=== PATIENT | female | born 1965 | race Caucasian/White ===

== ENCOUNTER 2019-09-22 15:25 | Inpatient (IN) | payer OTHER ==
[~2019-09-22] VITALS: Ht 165.1 cm; Wt 69.4 kg
--- NOTE | 2019-09-22 15:39 | NUR ---
BIBS FROM HOME TO ER BED 7. AAOX4. NOT IN RESP DISTRESS. AMBUALTORY. CAME IN FOR GEN ABDOMINAL PAIN X 3 DAYS. PER PT, PAIN STARTED AFTER EATING SOMETHING BAD ON SATURDAY. PT REPORTS UNABLE TO KEEP FOOD DOWN SINCE YESTERDAY. PT ALSO [id number], TAHT SHE HAD A FEVER OF 101.8 EARLIER AT NOON, NOTED ORAL TEMP AT 99.6. MD IS AT BEDSIDE FOR EVAL. AWAITING FOR FURTHER ORDERS
[2019-09-22] MEDS ORDERED: ONDANSETRON HCL/PF 4 MG/2 ML VIAL ONE (15:47)
[2019-09-22] MEDS ORDERED: MORPHINE SULFATE INJ 2 MG/ML DISP.SYRIN ONE (15:48)
[2019-09-22] MEDS ORDERED: MORPHINE SULFATE INJ 2 MG/ML DISP.SYRIN IV ONE (16:00)
[2019-09-22] MEDS ORDERED: IV NS 0.9% 1,000 ML BAG IV ONE (16:00)
[2019-09-22] MEDS ORDERED: ONDANSETRON HCL/PF 4 MG/2 ML VIAL IVP ONE (16:00)
[2019-09-22 16:03] LABS: BASOPHILS % (AUTO) 0.3 % (0.0-2.0); EOSINOPHILS % (AUTO) 0.4 % (0.0-6.0); HEMATOCRIT 44 % (33-45); HEMOGLOBIN 14.6 g/dL (11.5-14.8); LYMPHOCYTES # (AUTO) 0.9 /CMM (0.8-4.8); LYMPHOCYTES % (AUTO) 8.2 % (20.0-44.0); MEAN CORPUSCULAR HGB CONC 33 g/dl (31.0-36.0); MEAN CORPUSCULAR VOLUME 95 fL (82-100); MONOCYTES % (AUTO) 9.1 % (2.0-12.0); NEUTROPHILS # (AUTO) 9.4 /CMM (1.8-8.9); PLATELET COUNT (AUTO) 207 /CMM (150-450); RED BLOOD CELL COUNT(AUTO) 4.63 MIL/uL (4.0-5.2); WHITE BLOOD COUNT (AUTO) 11.4 K/uL (4.3-11.0)
[2019-09-22 16:15] LABS: BILIRUBIN,URINE SMALL (NEGATIVE); BLOOD, URINE Moderate Ery/uL (NEGATIVE); COLOR,URINE Yellow (YELLOW); KETONES,URINE >=160 (NEGATIVE); LEUKOCYTE ESTERASE ,URINE Negative (NEGATIVE); NITRITE, URINE Negative (NEGATIVE); PH,URINE 5.5 (5.0-8.0); PROTEIN,URINE Negative (NEGATIVE); UGLUCOSE Negative (NEGATIVE); UROBILINOGEN,URINE 0.2 EU/dL (0.2)
[2019-09-22 16:18] LABS: CALCIUM, SERUM 9.2 mg/dL (8.5-10.1); POTASSIUM 3.8 mmol/L (3.5-5.1)
[2019-09-22 16:24] LABS: ALBUMIN 4.1 g/dL (3.4-5.0); BILIRUBIN,DIRECT 0.2 mg/dL (0.0-0.2); TOTAL PROTEIN, SERUM 7.9 g/dL (6.4-8.2)
[2019-09-22 16:37] LABS: APPEARANCE,URINE SLIGHTLY HAZY (CLEAR)
[2019-09-22 16:38] LABS: BACTERIA,URINE Few /HPF (None Seen); SQUAMOUS EPITHELIAL CELL,UR Moderate /HPF (None Seen); WBC,URINE 0-2 /HPF (0-3)
[2019-09-22] MEDS ORDERED: HYDROMORPHONE 1 MG/1 ML DISP.SYRIN ONE (17:17)
[2019-09-22] MEDS ORDERED: FLAGYL/NS RTU 500 MG/100 ML PIGGYBACK IV ONE (17:30)
[2019-09-22] MEDS ORDERED: LEVOFLOXACIN 750 MG /D5W 150ML PIGGYBACK IV ONE (17:30)
[2019-09-22] MEDS ORDERED: HYDROMORPHONE 1 MG/1 ML DISP.SYRIN IV ONE (17:30)
[2019-09-22] MEDS ORDERED: METRONIDAZOLE 500MG/ NS 100ML 100 ML IV ONE (17:31)
[2019-09-22] MEDS ORDERED: LEVOFLOXACIN 750 MG /D5W 150ML 150 ML IV ONE (17:31)
--- NOTE | 2019-09-22 19:35 | NUR ---
CALLED [facility], PAGED VERONICA FOR ADMISSION
--- NOTE | 2019-09-22 19:44 | NUR ---
REPORT GIVEN TO CASE SUAREZ FOR KRZYSZTOF.
[2019-09-22 19:50] VITALS: BP 129/80
--- NOTE | 2019-09-22 19:55 | NUR ---
MS STRETCHER OPERATOR NOTES PATIENT TRANSFERRED FROM ER IN STABLE CONDITION. A/OX4 ABLE TO VERBALIZE NEEDS. AMBULATORY WITH STEADY GAIT. ON RA. NO S/S OF ACUTE RESPIRATORY DISTRESS. C/O ABDOMINAL PAIN RATED 5/10. DENIES NAUSEA AT THIS TIME. IV PRESENT ON LEFT HAND, SIZE 20, INTACT & PATENT, HEP LOCKED. SKIN DRY AND INTACT. BELONGINGS REVIEWED WITH PATIENT, LIST SIGNED AND PLACED IN CHART. MED RECON COMPLETED. MRSA SWAB COMPLETED IN ER. ADMISSION ORDERS IN PLACE. WILL CONTINUE TO MONITOR.
--- NOTE | 2019-09-22 19:55 | NUR ---
PT TRANSPORTED TO UNIT OPN KEE W/ EMT AND RN AT BEDSIDE. PT IS IN STABLE CONDITION. PT AMBULATED FROM [facility] TO BED ON STEADY GAIT
[2019-09-22 20:00] VITALS: BP 129/80
[2019-09-22] MEDS: IV D5/0.45 NACL 1,000 ML IV PRN (20:06)
[2019-09-22] MEDS: HYDROMORPHONE INJ 2 MG/ML DISP.SYRIN IV PRN (20:33)
[2019-09-22] MEDS ORDERED: ACETAMINOPHEN 650 MG/SUPP.RECT RC PRN (21:30)
[2019-09-22] MEDS ORDERED: LEVO50TA PO (23:08)
[2019-09-23] MEDS ORDERED: METRONIDAZOLE 500MG/ NS 100ML 100 ML IV ONE (00:07)
[2019-09-23] MEDS: METRONIDAZOLE 500MG/ NS 100ML 500 MG in PREMIX 1 EA IV SCH ×4 (00:11→23:45)
[2019-09-23 01:26] VITALS: BP 107/61
[2019-09-23] MEDS: HYDROMORPHONE INJ 2 MG/ML DISP.SYRIN IV PRN ×2 (01:28→17:39)
[2019-09-23] MEDS: ONDANSETRON HCL/PF 4 MG/2 ML VIAL IVP PRN ×4 (02:45→22:49)
[2019-09-23 06:25] LABS: BASOPHILS % (AUTO) 0.2 % (0.0-2.0); EOSINOPHILS % (AUTO) 0.4 % (0.0-6.0); HEMATOCRIT 37 % (33-45); HEMOGLOBIN 12.9 g/dL (11.5-14.8); LYMPHOCYTES # (AUTO) 1.1 /CMM (0.8-4.8); LYMPHOCYTES % (AUTO) 10.1 % (20.0-44.0); MEAN CORPUSCULAR HGB CONC 35 g/dl (31.0-36.0); MEAN CORPUSCULAR VOLUME 93 fL (82-100); MONOCYTES # (AUTO) 1.1 /CMM (0.1-1.30); MONOCYTES % (AUTO) 10.1 % (2.0-12.0); NEUTROPHILS # (AUTO) 8.4 /CMM (1.8-8.9); NEUTROPHILS % (AUTO) 79.2 % (43.0-81.0); PLATELET COUNT (AUTO) 188 /CMM (150-450); RED BLOOD CELL COUNT(AUTO) 3.93 MIL/uL (4.0-5.2); WHITE BLOOD COUNT (AUTO) 10.6 K/uL (4.3-11.0)
[2019-09-23 06:43] LABS: THYROID STIMULATING HORMONE 0.255 uIU/mL (0.358-3.74)
[2019-09-23 06:57] LABS: ALBUMIN 3.1 g/dL (3.4-5.0); BILIRUBIN,TOTAL 0.6 mg/dL (0.2-1.0); CREATININE 0.8 mg/dL (0.6-1.3); PHOSPHORUS 2.5 mg/dL (2.5-4.9); POTASSIUM 3.6 mmol/L (3.5-5.1); TOTAL PROTEIN, SERUM 6.4 g/dL (6.4-8.2)
--- NOTE | 2019-09-23 07:23 | NUR ---
MS RN CLOSING NOTES PATIENT AWAKE IN BED. A/OX 4. NO S/S OF ACUTE RESPIRATORY DISTRESS OR C/O PAIN. IV PRESENT ON LEFT HAND, SIZE 20, INTACT & PATENT WITH D5 1/2 NS RUNNING AT 75 ML/HR. PATIENT REMAINS NPO. SAFETY MEASURES IN PLACE AND PATIENT'S NEEDS MET. BED LOCKED, SIDE RAILS X2, CALL LIGHT WITHIN REACH. WILL ENDORSE TO DAY SHIFT NURSE PLAN OF CARE.
--- NOTE | 2019-09-23 07:30 | NUR ---
ms rn received on bed, awake,alert,oriented x4,not in any form of distress, respirations evenand unlabored ,no sob noted, came w/ diverticulitis, npo at this time.
[2019-09-23 08:09] VITALS: BP 101/66
[2019-09-23] MEDS: PANTOPRAZOLE 40 MG VIAL IV SCH (08:43)
[2019-09-23] MEDS: IV D5/0.45 NACL 1,000 ML IV PRN (08:48)
--- NOTE | 2019-09-23 09:00 | NUR ---
ms rn iv atb meds given, will be seen by dr. wills today.
[2019-09-23 10:38] LABS: C-REACTIVE PROTEIN 13.3 mg/dL (0.0-0.9)
[2019-09-23] MEDS: ENOXAPARIN SODIUM 40 MG/0.4 ML DISP.SYRIN SQ SCH (12:22)
[2019-09-23] MEDS: LEVOTHYROXINE SODIUM 75 MCG TABLET PO SCH (12:30)
[2019-09-23] MEDS ORDERED: LEVOFLOXACIN 750 MG /D5W 150ML 750 MG in PREMIX 1 EA IV SCH (15:00)
--- NOTE | 2019-09-23 16:30 | NUR ---
ms rn was seen by dr. elma cannon/ orders made and carried out.
[2019-09-23 17:17] VITALS: BP 105/69
--- NOTE | 2019-09-23 17:47 | NUR ---
ms rn on bed, pain meds given, and dinner served.
--- NOTE | 2019-09-23 19:43 | NUR ---
MS/RN OPENING NOTES RECEIVED PATIENT IN BED, AWAKE, ALERT X3, ABLE TO VERBALIZE NEEDS, WITH NAUSEA, HAD DILAUDID AND ZOFRAN EARLIER GIVEN BY AM RN, MADE ROUND DISCUSSED CARE. PATIENT TO BE MONITORED, ICE CHIPS PROVIDED, AND WILL BE CHECKING FOR COVID 19 BY NASAL SWAB PROVIDED IN LAB. CALL LIGHTS WITHIN REACH, BED LOCKED. WILL MONITOR.
[2019-09-23 20:00] VITALS: BP 100/75
[2019-09-23 20:38] VITALS: BP 100/75
--- NOTE | 2019-09-23 22:00 | NUR ---
MS/RN NOTES COVID 19 NASAL SWAB DONE PICKED UP AND DROP OFF TO LAB. PATIENT ABLE TO TOLERATE AND TOLERATED WELL. AWAITING FOR RESULT.
--- NOTE | 2019-09-23 22:49 | NUR ---
MS/RN NOTES PATIENT REQUESTED FOR NAUSEA AND VOMITING EPISODE, ZOFRAN IVP GIVEN, MONITORING RELIEF, REQUESTED FOR ROOM TRANSFER DUE TO NOISE IN THE OTHER ROOM, CHARGE NURSE AWARE AND ASSIGNED NEW ROOM TO RM 314-2.
[2019-09-24] MEDS: IV D5/0.45 NACL 1,000 ML IV PRN (06:24)
--- NOTE | 2019-09-24 06:40 | NUR ---
314-2 MS/RN CLOSING NOTES PATIENT SLEPT FEW HOURS, MONITORED FOR ANY CHANGES. ATTENDED TO ALL NEEDS, KEPT COMFORTABLE, IV FLUIDS INFUSING AND IV ON LEFT HAND PATENT. BED LOCKED,CALL LIGHTS WITHIN REACH. WILL ENDORSE TO AM RN FOR KRZYSZTOF.
--- NOTE | 2019-09-24 07:20 | NUR ---
MS RN NOTES RECEIVED PATIENT IN BED, ALERT AND AWAKE, ORIENTED X4. HOB ELEVATED. DENIES ANY C/O PAIN NOR DISCOMFORT AT THIS TIME. NO S/S OF RESPIRATORY DISTRESS. LEFT HAND # 20 SL INTACT AND PATENT. PATIENT DID NOT WANT TO BE CONNECTED TO IVF ORDERED. BED IN LOWEST POSITION, LOCKED. CALL LIGHT WITHIN REACH. ABLE TO VERBALIZE NEEDS.
[2019-09-24 08:00] VITALS: BP 109/70
[2019-09-24] MEDS: LEVOTHYROXINE SODIUM 75 MCG TABLET PO SCH (08:04)
[2019-09-24] MEDS: METRONIDAZOLE 500MG/ NS 100ML 500 MG in PREMIX 1 EA IV SCH (08:05)
[2019-09-24] MEDS: PANTOPRAZOLE 40 MG VIAL IV SCH (08:05)
[2019-09-24] MEDS: ENOXAPARIN SODIUM 40 MG/0.4 ML DISP.SYRIN SQ SCH (08:06)
[2019-09-24 08:28] LABS: C-REACTIVE PROTEIN 10.8 mg/dL (0.0-0.9)
--- NOTE | 2019-09-24 11:30 | NUR ---
MS RN NOTES PATIENT WANTS TO LEAVE AMA, NOTIFIED DR. FLOWERS.
--- NOTE | 2019-09-24 14:00 | NUR ---
MS RN NOTES PATIENT DIDN'T WANT TO STAY AT THE HOSPITAL ANYMORE. PATIENT STATES SHE FEELS BETTER NOW AND WAS ABLE TO TOLERATE FOOD WITHOUT ANY PROBLEMS AND SHE CAN FOLLOW UP WITH HER PRIMARY DR. ENCOURAGED PATIENT TO STAY BUT DIDN'T WANT TO, INFORMED PATIENT THAT SHE WILL REQUIRE ANTIBIOTIC PER MD AND PATIENT STATED SHE CAN GET IT FROM HER PRIMARY DR. PATIENT IS AWARE OF PENDING RESULT FOR COVID-19. PATIENT STATED, "IF I'M GOING TO STAY HERE JUST FOR COVID, I SURELY AM WILL NOT STAY AT THIS HOSPITAL." PRESCRIPTION SCRIPT GIVEN TO PATIENT FOR LEVAQUIN AND FLAGYL PRESCRIBED BY DR. FLOWERS. DENIES ANY C/O PAIN NOR DISCOMFORT. NO C/O N/V/D. NO COUGH NOR SOB OBSERVED DURING THE SHIFT. INSTRUCTIONS GIVEN TO PATIENT. NO ALL BELONGINGS ACCOUNTED FOR. IV ACCES REMOVED WITH CATHETER TIP INTACT. PATIENT LEFT VIA PRIVATE VEHICLE, AMBULATORY WITH STEADY GAIT IN STABLE CONDITION. IN NO APPARENT DISTRESS.
== END 2019-09-24 14:00 | disposition left against medical advice (07) | DRG 392 ==
LOC: ER 15:29 → MED 19:39
PROVIDERS: ADMIT Nurse Practitioner Acute Care; ATTEND Internal Medicine
DX: K57.32 Diverticulitis of large intestine without perforation or abscess without bleeding (principal); E03.9 Hypothyroidism, unspecified; D72.829 Elevated white blood cell count, unspecified; K57.30 Diverticulosis of large intestine without perforation or abscess without bleeding; E87.6 Hypokalemia; K62.89 Other specified diseases of anus and rectum; M19.90 Unspecified osteoarthritis, unspecified site; N20.0 Calculus of kidney
CPT/HCPCS: 36415; 80048-TC; 80053-TC; 80061-TC; 80076-TC; 81000-TC; 82728-TC; 83615-TC; 83690-TC; 83735-TC; 84100-TC; 84439-TC; 84443-TC; 85025-TC; 86140-TC; 87040-TC; 87081-TC; A4216; C9113; G0378; J1170; J1650; J1956; J2270; J2405; J3490; J7030